=== PATIENT | female | born 1985 | race American Indian/Alaskan Native ===

== ENCOUNTER 2016-09-09 08:21 | Emergency (ER) | payer MEDICAID ==
--- NOTE | 2016-09-09 08:26 | EDM.PDOC ---
ED HISTORY OF PRESENT ILLNESS - General Chief Complaint: Abdominal Pain Stated Complaint: UPPER ABDOMINAL AND CHEST PAIN [id number] Time Seen by Provider: 09/09/16 08:26 Source of Information: Reports: Patient, Family, Old records, RN, RN notes reviewed History Limitations: Reports: No limitations - History of Present Illness INITIAL COMMENTS - FREE TEXT/NARRATIVE: Arrives by POV with c/o of waking a few hours ago with an intense aching, cramping, and pressure sensation in the midline upper abdomen. Pt became anxious because she began to feel the pain into the lower chest. She states the she feels the pain to some degree all across the upper abdomen, but more at the RUQ than the LUQ. The pain radiates all the way around to the mid-back, she cannot tell if its radiating to the right or left. Denies shortness of breath. Admits to mild sore throat, and some nausea, but doesn't feel like she is likely to actually vomit. Denies diarrhea, constipation, dark, black, bloody, or melanotic stools. Denies fever, chills, cough, or urinary Sx's. Denies sharp , or tearing pain, or sudden onset. She last ate yesterday evening apprx. 6-7PM and had pizza. Symptom Onset Date: 09/09/16 Timing/Duration: Reports: Constant Location, General: Reports: chest, abdomen Quality: Reports: Ache, Pressure, Other (cramping) Improves with: Reports: None Worsens with: Reports: None Context, General: Denies: Activity, Exercise, Lifting, Sick contact, Trauma Associated Symptoms (General): Reports: no other symptoms - Related Data Allergies/ADRs: Allergies Allergy/AdvReac Type Severity Reaction Status Date / Time amoxicillin [From Augmentin] Allergy Swelling Verified 09/09/16 08:28 clavulanic acid Allergy Swelling Verified 09/09/16 08:28 [From Augmentin] Home Meds: Home Meds . 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: Musculoskeletal History: Reports: None Neurological History: Reports: None Psychiatric History: Reports: None Endocrine/Metabolic History: Reports: None Hematologic History: Reports: None Immunologic History: Reports: None Oncologic (Cancer) History: Reports: None Dermatologic History: Reports: None - Infectious Disease History Infectious Disease History: Reports: Chicken pox - Past Surgical History Head Surgeries/Procedures: Reports: None Social & Family History - Family History Family Medical History: Noncontributory - Tobacco Use Smoking Status *Q: Current Every Day Smoker Years of Tobacco use: 10 Packs/Tins Daily: 0.5 Used Tobacco, but Quit: No Second Hand Smoke Exposure: No - Caffeine Use Caffeine Use: Reports: None Other Caffeine Use: 12 cups/day - Alcohol Use Alcohol Use History: Yes Days Per Week of Alcohol Use: 2 Number of Drinks Per Day: 10 Total Drinks Per Week: 20 Alcohol Use Frequency: Binges - Recreational Drug Use Recreational Drug Use: Yes Drug Use in Last 12 Months: Yes Recreational Drug Type: Reports: Marijuana/Hashish Recreational Drug Use Frequency: Monthly - Living Situation & Occupation Living situation: Reports: with family Occupation: unemployed ED ROS GENERAL - Review of Systems Review Of Systems: ROS reveals no pertinent complaints other than HPI. ED EXAM, GENERAL - Physical Exam Exam: See Below Exam Limited By: No limitations General Appearance: alert, WD/WN, no apparent distress Eye Exam: bilateral eye: normal inspection Ears: normal external exam, hearing grossly normal Nose: normal inspection, normal mucosa, no blood Throat/Mouth: Normal lips, Normal teeth, Normal gums, Normal voice, No airway compromise, Other (mild pharyngeal erythema w/tonsillar exudates) Head: atraumatic, normocephalic Neck: normal inspection, supple, non-tender, full range of motion Respiratory/Chest: no respiratory distress, lungs clear, normal breath sounds, no accessory muscle use, chest non-tender Cardiovascular: normal peripheral pulses, regular rate, rhythm, no edema, no gallop, no JVD, no murmur, no rub GI/Abdominal: normal bowel sounds, soft, no organomegaly, no distention, no abnormal bruit, tender (Acutely tender at RUQ. Tender to palpation at epigastric region.). No: guarding, rigid, rebound (Female) Exam: Deferred Rectal (Female) Exam: Deferred Back Exam: normal inspection, full range of motion. No: CVA tenderness (L), CVA tenderness (R) Extremities: normal inspection, normal range of motion, non-tender, normal capillary refill, no pedal edema Neurological: alert, oriented, CN II-XII intact, normal cognition, normal gait, no motor/sensory deficits Psychiatric: normal affect, normal mood Skin Exam: Warm, Dry, Intact, Normal color, No rash EKG INTERPRETATION EKG Date: 09/09/16 Time: 07:26 Rhythm: other (Sinus bradycardia) Rate (beats/min): 56 [place]: normal P-wave: present QRS: normal ST-T: normal QT: normal Comparison: NA - no prior EKG Course - Vital Signs Last Recorded V/S: Last Vital Signs Temp 36.6 C 09/09/16 08:32 Pulse 56 L 09/09/16 08:32 Resp 20 09/09/16 08:32 BP 139/79 09/09/16 08:32 Pulse Ox 100 09/09/16 08:32 - Orders/Labs/Meds Orders: Active Orders 24 hr Category Date Time Status EKG 12 Lead [EKG Documentation Completion] [RC] STAT Care 09/09/16 08:32 Active Peripheral IV Care [RC] . DIRECTED Care 09/09/16 08:32 Active CK W CKMB [CHEM] Stat Lab 09/09/16 08:37 Results DRUG SCREEN URINE BIORAD [URCHEM] Stat Lab 09/09/16 08:32 Uncollected HCG QUALITATIVE,URINE [URCHEM] Stat Lab 09/09/16 08:31 Uncollected UA W/MICROSCOPIC [URIN] Stat Lab 09/09/16 08:32 Uncollected Sodium Chloride 0.9% [Saline Flush] Med 09/09/16 08:31 Active 10 ml FLUSH ASDIRECTED PRN cefTRIAXone [Rocephin] 1 gm Med 09/09/16 09:00 Active Sodium Chloride 0.9% [Normal Saline] 50 ml IV ONETIME Peripheral IV Insertion Adult [OM.PC] Stat Oth 09/09/16 08:31 Ordered Medication Orders Ceftriaxone Sodium 1 gm/ (Sodium Chloride) 50 mls @ 100 mls/hr IV ONETIME ONE Stop: 09/09/16 09:29 Last Admin: 09/09/16 09:05 Dose: 100 mls/hr Sodium Chloride (Saline Flush) 10 ml FLUSH ASDIRECTED PRN PRN Reason: Keep Vein Open Last Admin: 09/09/16 08:40 Dose: 10 ml Labs: Laboratory Tests 09/09/16 09/09/16 09/09/16 Range/Units 08:37 08:37 08:37 WBC 9.3 (5.0-10.0) 10^3/uL RBC 4.29 (4.2-5.4) 10^6/uL Hgb 11.6 L (12.0-16.0) g/dL Hct 36.4 L (37.0-47.0) % MCV 84.8 (80-100) fL MCH 27.0 (27.0-34.0) pg MCHC 31.9 L (33.0-35.0) g/dL Plt Count 212 (150-450) 10^3/uL Neut % (Auto) 61.1 (42.2-75.2) % Lymph % (Auto) 25.7 (20.5-50.1) % [place] % (Auto) 9.7 H (2-8) % Eos % (Auto) 3.4 H (1.0-3.0) % Baso % (Auto) 0.1 (0.0-1.0) % D-Dimer, Quantitative 179 (0-400) ng/mL Sodium 139 (135-145) mmol/L Potassium 3.9 (3.6-5.0) mmol/L Chloride 105 (101-111) mmol/L Carbon Dioxide 25.0 (21.0-31.0) mmol/L Anion Gap 12.9 BUN 19 H (7-18) mg/dL Creatinine 0.7 (0.6-1.3) mg/dL Est Cr Clr Drug Dosing 114.28 mL/min Estimated GFR (MDRD) > 60 BUN/Creatinine Ratio 27.14 Glucose 106 H (74-105) mg/dL Calcium 8.6 (8.4-10.2) mg/dl Total Bilirubin 0.2 (0.2-1.0) mg/dL AST 37 (10-42) IU/L ALT 20 (10-60) IU/L Alkaline Phosphatase 65 (42-121) IU/L Creatine Kinase (26-174) IU/L CK-MB (CK-2) (0.4-4.7) ng/mL Troponin I < 0.02 (0.00-0.02) ng/ml Total Protein 6.8 (6.7-8.2) g/dl Albumin 3.6 (3.2-5.5) g/dl Globulin 3.2 Albumin/Globulin Ratio 1.13 Amylase 53 (28-100) U/L Lipase 32 (22-51) U/L Ethyl Alcohol < 5 mg/dL 09/09/16 Range/Units 08:37 WBC (5.0-10.0) 10^3/uL RBC (4.2-5.4) 10^6/uL Hgb (12.0-16.0) g/dL Hct (37.0-47.0) % MCV (80-100) fL MCH (27.0-34.0) pg MCHC (33.0-35.0) g/dL Plt Count (150-450) 10^3/uL Neut % (Auto) (42.2-75.2) % Lymph % (Auto) (20.5-50.1) % [place] % (Auto) (2-8) % Eos % (Auto) (1.0-3.0) % Baso % (Auto) (0.0-1.0) % D-Dimer, Quantitative (0-400) ng/mL Sodium (135-145) mmol/L Potassium (3.6-5.0) mmol/L Chloride (101-111) mmol/L Carbon Dioxide (21.0-31.0) mmol/L Anion Gap BUN (7-18) mg/dL Creatinine (0.6-1.3) mg/dL Est Cr Clr Drug Dosing mL/min Estimated GFR (MDRD) BUN/Creatinine Ratio Glucose (74-105) mg/dL Calcium (8.4-10.2) mg/dl Total Bilirubin (0.2-1.0) mg/dL AST (10-42) IU/L ALT (10-60) IU/L Alkaline Phosphatase (42-121) IU/L Creatine Kinase 43 (26-174) IU/L CK-MB (CK-2) 1.40 (0.4-4.7) ng/mL Troponin I (0.00-0.02) ng/ml Total Protein (6.7-8.2) g/dl Albumin (3.2-5.5) g/dl Globulin Albumin/Globulin Ratio Amylase (28-100) U/L Lipase (22-51) U/L Ethyl Alcohol mg/dL Meds: Medications Generic Name Dose Route Start Last Admin Trade Name Freq PRN Reason Stop Dose Admin Ceftriaxone Sodium 1 gm/ 50 mls @ 100 mls/hr 09/09/16 09:00 09/09/16 09:05 Sodium Chloride IV 09/09/16 09:29 100 mls/hr ONETIME ONE Administration Sodium Chloride 10 ml 09/09/16 08:31 09/09/16 08:40 Saline Flush FLUSH 10 ml ASDIRECTED PRN Administration Keep Vein Open Discontinued Medications Generic Name Dose Route Start Last Admin Trade Name Freq PRN Reason Stop Dose Admin Al Hydroxide/Mg Hydroxide 30 ml 09/09/16 08:34 09/09/16 08:40 Gi Cocktail PO 09/09/16 08:35 30 ml ONETIME ONE Administration Ondansetron HCl 4 mg 09/09/16 08:33 09/09/16 08:40 Zofran IV 09/09/16 08:34 4 mg ONETIME ONE Administration - Radiology Interpretation Free Text/Narrative:: CXR: no acute process. CT Results Date: 09/09/16 Departure - Departure Time of Disposition: 09:27 Disposition: Home, Self-Care 01 Condition: good Clinical Impression: Strep pharyngitis Instructions: Strep Throat, [id number] Forms: ED Department Discharge Additional Instructions: Rx: Zithromax (Azithromycin) 250mg Follow up in clinic if not improved in 1 to 2 days. - My Orders Last 24 Hours: My Active Orders 09/09/16 08:31 HCG QUALITATIVE,URINE [URCHEM] Stat Sodium Chloride 0.9% [Saline Flush] 10 ml FLUSH ASDIRECTED PRN Peripheral IV Insertion Adult [OM.PC] Stat 09/09/16 08:32 EKG 12 Lead [EKG Documentation Completion] [RC] STAT Peripheral IV Care [RC] . DIRECTED DRUG SCREEN URINE BIORAD [URCHEM] Stat UA W/MICROSCOPIC [URIN] Stat 09/09/16 08:37 CK W CKMB [CHEM] Stat 09/09/16 09:00 cefTRIAXone [Rocephin] 1 gm Sodium Chloride 0.9% [Normal Saline] 50 ml IV ONETIME - Assessment/Plan Last 24 Hours: My Active Orders 09/09/16 08:31 HCG QUALITATIVE,URINE [URCHEM] Stat Sodium Chloride 0.9% [Saline Flush] 10 ml FLUSH ASDIRECTED PRN Peripheral IV Insertion Adult [OM.PC] Stat 09/09/16 08:32 EKG 12 Lead [EKG Documentation Completion] [RC] STAT Peripheral IV Care [RC] . DIRECTED DRUG SCREEN URINE BIORAD [URCHEM] Stat UA W/MICROSCOPIC [URIN] Stat 09/09/16 08:37 CK W CKMB [CHEM] Stat 09/09/16 09:00 cefTRIAXone [Rocephin] 1 gm Sodium Chloride 0.9% [Normal Saline] 50 ml IV ONETIME
[2016-09-09] MEDS ORDERED: Sodium Chloride 0.9% 10 ML Syringe FLUSH PRN (08:31)
[2016-09-09] MEDS ORDERED: Ondansetron 4 MG/2 ML SDV IV ONE ×2 (08:33→09:32)
[2016-09-09] MEDS ORDERED: GI Cocktail Oral Solution 30 ML PO ONE (08:34)
[2016-09-09] MEDS ORDERED: cefTRIAXone 1 GM in Sodium Chloride 0.9% 50 ML IV ONE (09:00)
[2016-09-09 09:05] LABS: CHLORIDE,CL 105 mmol/L (101-111); SODIUM,NA 139 mmol/L (135-145)
[2016-09-09 09:58] VITALS: BP 133/69
--- NOTE | 2016-10-22 12:49 | EKG ---
09/09/2016 - VANIA PRECIADO - Twelve-lead EKG shows sinus bradycardia with heart rate of 56. No significant ST elevation or ST depression noted on this 12-lead EKG. [facility] /[id number]
== END 2016-09-09 09:45 | disposition home or self-care (01) ==
LOC: DL.ED 08:21
DX: J02.0 Streptococcal pharyngitis (principal); R10.11 Right upper quadrant pain; R10.13 Epigastric pain; F17.210 Nicotine dependence, cigarettes, uncomplicated; Z88.1 Allergy status to other antibiotic agents
CPT/HCPCS: 36415; 71010; 80053; 82150; 82550; 82553; 83690; 84484; 85025; 85379; 87430; 93005; 96365; 96375; 96376; 99285; A9270; G0480; J0696; J2405; J7050